=== PATIENT | female | born 1940 | race Two or more races ===

== ENCOUNTER 2024-11-22 08:43 | Day surgery (SDC) | payer MEDICARE, SELFPAY ==
[2024-11-22] VITALS (10 sets, daily range): BP systolic 108–167; BP diastolic 53–82; BMI 22.3
[2024-11-22 09:46] LABS: Hematocrit 40.5 % (37.0-47.0); Hemoglobin 12.9 g/dL (12.0-16.0); Mean Corp Hgb Conc. 31.9 g/dL (33.0-37.0); Mean Corpuscular Volume 79.7 fL (81.0-99.0); Platelet Count 339 10^3/uL (130-400); Red Cell Dist. Width 18.6 % (11.5-14.5)
[2024-11-22] MEDS: NSS 145 ML IV (09:47)
[2024-11-22] MEDS: LOW STRENGTH ASPIRIN 81 MG PO (09:50)
[2024-11-22 10:01] LABS: Blood Urea Nitrogen 18 mg/dl (7-17); Calcium 10.1 mg/dl (8.4-10.2); Carbon Dioxide 26 mmol/L (22-30); Chloride 107 mmol/L (98-107); Estimated Creatinine Clearance 40 ml/min; Glucose 180 mg/dl (70-99); Potassium 3.9 mmol/L (3.5-5.1); Sodium 141 mmol/L (135-145); eGFR > 60.00
[2024-11-22 13:30] LABS: ACT-LR - POC 178 Seconds (116-155)
[2024-11-22 13:40] LABS: ACT-LR - POC 250 Seconds (116-155)
[2024-11-22 13:57] LABS: ACT-LR - POC 252 Seconds (116-155)
[2024-11-22 14:08] LABS: ACT-LR - POC 294 Seconds (116-155)
[2024-11-22 14:23] LABS: ACT-LR - POC 274 Seconds (116-155)
[2024-11-22] MEDS: NSS 1000 IV (15:00)
--- NOTE | 2024-11-22 15:04 | ITS.CL.CATH ---
Garment Manufacturer - Catheterization
Cardiac Catheterization
Procedure Report:
LEFT HEART CATHETERIZATION AND CORONARY INTERVENTION
Date of Procedure: November 22, 2024
Referring: Mitchell Angulo MD
PROCEDURES:
1. Left heart catheterization, coronary angiogram.
2. Moderate sedation.
3. Successful percutaneous coronary artery intervention of a IFR +70% mid LAD stenosis (iFR 0.89) with one 2.5 x 12 mm Xience [place] point drug-eluting stent, postdilated with a 2.5 x 8 mm NC balloon at high pressures with an excellent angiographic
result.
4. Intravascular ultrasound (IVUS)
5. Functional physiologic testing with IFR of mid LAD
INDICATION: Ongoing dyspnea on exertion with an abnormal stress test on 3 antianginal medications
ACCESS: Right radial artery, 6Fr. sheath, under US guidance.
HEMODYNAMICS : (mmHg)
AO (s/d) : 116/50
LVEDP : 13
No significant gradient across the aortic valve to suggest aortic stenosis.
CORONARY FINDINGS
Dominance: Left
Left Main Trunk (LMT): The left main appears to be cloacal in origin giving rise to the LAD and the left circumflex with minimal atherosclerotic plaque.
Left Anterior Descending Artery (LAD): Mildly calcified, medium caliber vessel that gives off 1 major diagonal branch as it courses along the anterior inter-ventricular groove before wrapping around the cardiac apex. The mid LAD has a 70% stenosis
just distal to the takeoff of the major diagonal branch which was IFR positive at 0.89 with intervention as noted below. Proximal LAD has a 20% stenosis. Ostial D1 has a eccentric 60 to 70% stenosis.
Left Circumflex Artery (LCx): Large caliber vessel that gives off 2 major obtuse marginal (OM) branches, 1 posterolateral branch and the left posterior descending artery as it courses along the atrio-ventricular (AV) groove. There is mild diffuse
atherosclerotic plaque.
Right Coronary Artery (RCA): Large caliber dominant vessel that gives rise to the posterior descending artery (RPDA) and postero-lateral ventricular (RPLV) branches distally. The RCA and its branches are free of angiographic disease.
HEMODYNAMIC ASSESSMENT OF THE MID LAD WITH A [employer] OMNI WIRE: The origin of the left coronary artery was cannulated with a 6 Fr JL 3.5 guide catheter. We initially attempted a 6 [place] EBU 3.5 guide catheter however given the cloacal nature of
the origin of the left main we could only selectively engage into the left circumflex despite manipulation multiple times. Intravenous heparin was administered and the ACT was followed during the procedure. Of note, soon after selective engagement
with the guide catheter, patient had sudden onset of initial sinus bradycardia followed by 2-1 AV block associated with hypotension requiring support transiently with Conrado-Synephrine for hypotension as well as atropine with eventual resolution and
then she remained in sinus rhythm for the remainder of the case without any recurrence. At this time she did not complain of any lightheadedness/dizziness, presyncope, nausea or any other symptoms. Two hundred micrograms of intracoronary
nitroglycerin was given through the guide catheter. A [employer] Omni wire was advanced to the guide catheter tip and normalized just outside the guide catheter. The Omni wire was then carefully manipulated across the stenosis in the mid LAD with the
iFR below the ischemic threshold serially measuring 0.89, 0.90, 0.90. The Omni wire was then pulled back to the guide catheter where the Pd/Pa measured 1.0 confirming no baseline drift in pressure readings.
CORONARY INTERVENTION: We decided to proceed with percutaneous intervention of the mid LAD for an IFR of 0.89. We proceeded to work over the IFR wire that was in the distal vessel. We predilated the lesion using a 2.5 x 12 mm semicompliant balloon
to full expansion. We subsequently stented the lesion with a 2.5 x 12 mm Xience landon point drug-eluting stent and postdilated with a 2.5 x 8 mm NC balloon at high pressures with an excellent angiographic result. At this point we brought in a
[place] eye IVUS catheter and we were only able to advance the IVUS catheter to the proximal edge of the stent given significant calcium. At this point the stent appeared well-expanded and well opposed. There was no evidence of proximal
stent edge dissection. Otherwise there was diffuse mild atherosclerotic plaque noted within the proximal to mid LAD on intravascular ultrasound.
SEDATION: 67 minutes of procedural sedation was utilized. IV Midazolam and IV Fentanyl were administered. An independent medical reimbursement specialist was present to assist with and help manage the patient's level of consciousness and physiologic status.
RADIATION SUMMARY: Fluoro Time (min): 19.2, Dose (mGy): 482, DAP (Gy.cm2) : 29.6
Closure Device: There were no immediate intra-procedural complications. The sheath was pulled in the computer lab assistant and a vascular-band applied to the right wrist for radial artery hemostasis using the patent hemostasis technique.
CONCLUSIONS
1. Successful percutaneous coronary artery intervention of a IFR +70% mid LAD stenosis (iFR 0.89) with one 2.5 x 12 mm Xience land[place] point drug-eluting stent, postdilated with a 2.5 x 8 mm NC balloon at high pressures with an excellent angiographic
result.
2. LVEDP of 13 mmHg.
3. Of note, soon after selective engagement with the guide catheter prior to iFR, patient had sudden onset of initial sinus bradycardia followed by 2-1 AV block associated with hypotension requiring support transiently with Conrado-Synephrine for
hypotension as well as atropine with eventual resolution and then she remained in sinus rhythm for the remainder of the case without any recurrence. At this time she did not complain of any lightheadedness/dizziness, presyncope, nausea or any other
symptoms.
RECOMMENDATIONS
1. Wean radial band per protocol. Monitor right hand perfusion and for bleeding from the radial site following removal of the vascular-band following trans-radial access.
2. Continue aggressive medical therapy and risk factor modification for secondary CAD prevention.
3. Continue ASA 81 mg daily for life.
4. Continue plavix for at least 12 months of uninterrupted dual anti-platelet therapy given drug-eluting stent (MADALYN) implantation to mitigate the risk of stent thrombosis. This is not to be stopped for any reason without the guidance of a
restaurant service manager.
5. Hydrate with normal saline to mitigate the risk of contrast-induced acute kidney injury.
6. Monitor closely on telemetry overnight with consideration for outpatient environmental monitoring technician.
7. Referral for outpatient cardiac rehab.
8. Follow-up with Dr. Mitchell Angulo.
Copy to: Dr. Mitchell Angulo (restaurant service manager) and Dr. Shaggy Judge (PCP)
Laura Bunch MD, FACC, [facility]
--- NOTE | 2024-11-22 15:26 | CM ---
Reviewed chart. Met with Mrs. Lovett and her family to review discharge plans. Family provided the information. Prior to admission she resides with her son and [id number] in a two story home with three steps to enter. She has a full flight
of steps to get to bedroom/full bathroom. She has a powder room on the first floor. Prior to admission she ambulates with a walker or a handheld of her son or [id number]. She has someone at home with her. She has a prescription plan. The
discharge plan is to return home with her son and [id number] when medically stable.
[2024-11-22] MEDS: TYLENOL 650 MG PO (15:54)
[2024-11-22] MEDS: PROTONIX 40 MG PO (16:31)
[2024-11-22] MEDS: CRESTOR 40 MG PO (17:07)
[2024-11-22] MEDS: HEPARIN 5000 UNITS SC (19:57)
[2024-11-23] VITALS (8 sets, daily range): BP systolic 115–172; BP diastolic 53–87; BMI 22.2
--- NOTE | 2024-11-23 02:59 | DOWNTIME ---
There was a [employer] Client Electric Wheelchair Repairer Downtime on 11/23/2024 from 0100 to 11/23/2024 at 0220. Downtime documentation of patient's care, including medication administrations, has been reconciled in the electronic record per guidelines. Refer to the
patient's paper chart under the miscellaneous tab to see printed paper medication records and downtime forms.
[2024-11-23 05:05] LABS: Hematocrit 37.9 % (37.0-47.0); Hemoglobin 12.1 g/dL (12.0-16.0); Mean Corp Hgb Conc. 31.9 g/dL (33.0-37.0); Mean Corpuscular Volume 80.0 fL (81.0-99.0); Nucleated Red Blood Cells % 0 %; Platelet Count 297 10^3/uL (130-400); Red Cell Dist. Width 18.5 % (11.5-14.5)
[2024-11-23 05:29] LABS: Blood Urea Nitrogen 15 mg/dl (7-17); Calcium 9.7 mg/dl (8.4-10.2); Carbon Dioxide 26 mmol/L (22-30); Chloride 107 mmol/L (98-107); Estimated Creatinine Clearance 40 ml/min; Glucose 146 mg/dl (70-99); HDL Cholesterol 42 mg/dl; LDL Cholesterol, Calculated 31 mg/dl; Potassium 3.6 mmol/L (3.5-5.1); Sodium 140 mmol/L (135-145); Very Low Density Lipoprotein 22 mg/dl (0-30); eGFR > 60.00
[2024-11-23] MEDS: PROTONIX 40 MG PO (08:47)
[2024-11-23] MEDS: NORVASC 5 MG PO (08:47)
[2024-11-23] MEDS: PLAVIX 75 MG PO (08:47)
[2024-11-23] MEDS: LOW STRENGTH ASPIRIN 81 MG PO (08:48)
[2024-11-23] MEDS: TENORMIN 100 MG PO (08:48)
[2024-11-23] MEDS: COZAAR 50 MG PO (08:48)
[2024-11-23] MEDS: FEOSOL 325 MG PO (08:51)
[2024-11-23] MEDS: HEPARIN 5000 UNITS SC ×2 (08:52→21:48)
[2024-11-23] MEDS: VITAMIN D3 (cholecalciferol) 125 MCG PO (08:52)
[2024-11-23] MEDS: IMDUR (EXTENDED RELEASE) 30 MG PO (09:18)
--- NOTE | 2024-11-23 09:59 | W.PN.CARDCBS ---
Addendum entered and electronically signed by Haresh Judge MD 11/23/24 14:29:
I saw and examined the patient.
The Loom Doffer's note was reviewed and I agree with the note.
Comment: Briefly, 84-year-old womareferred for coronary angiography 11/22/2024 n and had successful PCI of the mid LAD with drug-eluting stent
Overall seems to be doing well from a cardiovascular standpoint today. Resting comfortably out of bed to chair. No significant chest discomfort or dyspnea.
She does have significant bruising of the right forearm related to radial access site
Vascular ultrasound earlier today showed pseudoaneurysm and hematoma
Appreciate interventional cardiology input, TR band was placed earlier today
Continue aspirin/Plavix, high intensity statin
Beta-jimena, calcium channel jimena and long-acting nitrate as antianginals
Rest per Negrita Becerra
Original Note:
Today's Communication / Plan
-
post PCI, rad site tender check u/s
DAPT ASA/Plavix
Impression / Plan
-
PCP: Dr. Layo Judge
CDY: Mitchell Angulo MD
Impression:
CAD cath 2016 with IFR neg LAD
post PCI IFR + LAD x 1 MADALYN 2.5 x 8mm Xience skypoint 11/22/24
HTN
HLD
DM2
GUILHERME
Family hx CAD
Plan:
post PCI LAD
denies cp, sob
severe tenderness, pain in right radial site, significant ecchymosis
Check u/s rad site to r/o PSA, will have IC eval site
DAPT ASA/Plavix
Will increase Rosuvastatin 40mg daily
Hold Synjardy 48 hrs post procedure
Stop omeprazole while on plavix, switch to protonix
continue antianginals amlodipine and isosorbide for now
Cardiac rehab c/s
f/u Dr. Angulo in 2-4 weeks
pending radial u/s poss d/c home later today
PROCEDURES:
1. Left heart catheterization, coronary angiogram.
2. Moderate sedation.
3. Successful percutaneous coronary artery intervention of a IFR +70% mid LAD stenosis (iFR 0.89) with one 2.5 x 12 mm Xience landon point drug-eluting stent, postdilated with a 2.5 x 8 mm NC balloon at high pressures with an excellent angiographic
result.
4. Intravascular ultrasound (IVUS)
5. Functional physiologic testing with IFR of mid LAD
INDICATION: Ongoing dyspnea on exertion with an abnormal stress test on 3 antianginal medications
Progress Note - [employer]
Subjective
Date of Service: November 23, 2024
denies cp, sob, severe radial site pain
Objective
Labs:
11/23/24 04:24
11/23/24 04:24
Labs
Hgb 12.1 g/dL (12.0-16.0) 11/23/24 04:24
Hct 37.9 % (37.0-47.0) 11/23/24 04:24
Plt Count 297 10^3/uL (130-400) 11/23/24 04:24
Sodium 140 mmol/L (135-145) 11/23/24 04:24
Potassium 3.6 mmol/L (3.5-5.1) 11/23/24 04:24
BUN 15 mg/dl (7-17) 11/23/24 04:24
Creatinine 0.7 mg/dL (0.6-1.0) 11/23/24 04:24
Glucose 146 mg/dl (70-99) H 11/23/24 04:24
Vital Signs and I&O:
Vital Signs
Temp Pulse Resp BP Pulse Ox
98.0 F 64 16 129/60 97
11/23/24 07:45 11/23/24 08:15 11/23/24 07:45 11/23/24 07:44 11/23/24 07:44
Vital Signs
Temp Pulse Resp BP Pulse Ox
98.0 F 64 16 129/60 97
11/23/24 07:45 11/23/24 08:15 11/23/24 07:45 11/23/24 07:44 11/23/24 07:44
Intake & Output
11/21/24 11/22/24 11/23/24 11/24/24
06:59 06:59 06:59 06:59
Intake Total 295 / 295
Output Total 200 / 200
Balance 95 / 95
Physical Exam
Physical Exam
NAD, AOX3
S1, S2, RRR
CTAB, non labored, no wheeze
SNTND bsx4
R rad site pulsatile rad site, severe tenderness, moderate ecchymosis
[2024-11-23 10:16] LABS: Glycohemoglobin (HgbA1c) 8.5 % (4.0-5.6)
--- NOTE | 2024-11-23 11:15 | CM ---
Reviewed chart. Met with Mrs Lovett and her son to review discharge plans. He states she is feeling well and maybe able to go home soon. Prior to admission she resides with her son and daughter-in -law in a two story home with three steps to enter.
She has a full flight of steps to get to bedroom/full bathroom. She has a powder room on the first floor. Prior to admission she ambulates with a walker or hand holding on to her son or [id number]. Someone is always home with her. She has a
prescription plan and uses [facility]. The discharge plan is to return home with her family when medically stable.
--- NOTE | 2024-11-23 11:53 | W.PN.UPDATE ---
Update Note
Progress Note Update
Attending addendum: Pulsatile radial artery. No bruit noted but quite tender. 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 I placed a TR band at 10 ml air in balloon. Pulse ox 96% after TR band
inflated. Will repeat ultrasound this after noon.
--- NOTE | 2024-11-23 17:23 | PTCARENOTE ---
Pt received this am with no c/o of chest pain or sob. Right radial cath site slightly firm/ecchymotic. Pt sent for an U/S, then Dr. Baez applied a TR band with 10ml of air. Band removed by Basilia Becerra CNP prior to repeat U/S.
[2024-11-23] MEDS: CRESTOR 40 MG PO (17:44)
[2024-11-23] MEDS: TYLENOL 650 MG PO (21:48)
--- NOTE | 2024-11-23 22:52 | PTCARENOTE ---
assumed care of patient at the change of shift. grandson at the bedside and staying overnight. assist with translating. patient resting in the chair. ambulated in the hallway without an issue. patient states tender above the Right wrist cath site.
site is ecchymotic. mild firmness noted-no change from previous shift. + pulse. patient states no pain unless palpated. Tylenol given per request, see marcos. SR on tele 60s. denies any cp/sob. answered all questions. educated patient and grandson to
call RN with any changes overnight. makes needs known. call mitchell within reach.
[2024-11-24 04:22] VITALS: BP 173/85
[2024-11-24 04:23] VITALS: BP 181/76
[2024-11-24] MEDS: IMDUR (EXTENDED RELEASE) 30 MG PO (04:40)
[2024-11-24] MEDS: COZAAR 50 MG PO (04:40)
[2024-11-24 04:43] LABS: Hematocrit 39.3 % (37.0-47.0); Hemoglobin 12.8 g/dL (12.0-16.0); Mean Corp Hgb Conc. 32.6 g/dL (33.0-37.0); Mean Corpuscular Volume 79.9 fL (81.0-99.0); Platelet Count 305 10^3/uL (130-400); Red Cell Dist. Width 18.3 % (11.5-14.5)
--- NOTE | 2024-11-24 04:43 | PTCARENOTE ---
Addendum entered by Mathew Jones RN 11/24/24 06:01:
repeat blood pressure- 144/76.
Original Note:
elevated blood pressure this morning. 173/85. 181/76. HR SR 60s. discussed plan of care with Dewayne LOERA PA. okay to give morning dose of Losartan and Imdur, see mar. patient denies any complaints at this time. denies any cp. no changes noted to
the right wrist site. tender.
[2024-11-24 05:07] LABS: Blood Urea Nitrogen 15 mg/dl (7-17); Calcium 9.9 mg/dl (8.4-10.2); Carbon Dioxide 25 mmol/L (22-30); Chloride 107 mmol/L (98-107); Estimated Creatinine Clearance 40 ml/min; Glucose 194 mg/dl (70-99); Potassium 3.6 mmol/L (3.5-5.1); Sodium 141 mmol/L (135-145); eGFR > 60.00
[2024-11-24 06:01] VITALS: BP 144/76
[2024-11-24 07:58] VITALS: BP 131/61
[2024-11-24] MEDS: NORVASC 5 MG PO (08:36)
[2024-11-24] MEDS: PROTONIX 40 MG PO (08:36)
[2024-11-24] MEDS: FEOSOL 325 MG PO (08:37)
[2024-11-24] MEDS: PLAVIX 75 MG PO (08:37)
[2024-11-24] MEDS: LOW STRENGTH ASPIRIN 81 MG PO (08:37)
[2024-11-24] MEDS: VITAMIN D3 (cholecalciferol) 125 MCG PO (08:37)
[2024-11-24] MEDS: TENORMIN 100 MG PO (08:38)
--- NOTE | 2024-11-24 09:56 | W.PN.CARDCBS ---
Addendum entered and electronically signed by Laura Bunch MD 11/24/24 15:23:
I saw and examined the patient.
The Public Accountant's note was reviewed and I agree with the note.
Comment: Overall patient is doing well and does not offer any significant complaints. No issues at the right radial access site this morning. She has been out ambulating the halls without any shortness of breath or any symptoms.
Vital signs and lab work reviewed. On exam patient is well-appearing, no acute distress, awake alert and oriented x 3, regular rate, normal S1 and S2, no murmurs, rubs or gallops, lungs are clear to auscultation bilaterally, abdomen is soft,
nontender, nondistended with active bowel sounds, warm extremities without significant edema
Recommendations:
1. Repeat ultrasound this morning which shows that the small pseudoaneurysm is completely thrombosed. No further indications for interventions by vascular surgery at this point.
2. Continue dual antiplatelet therapy with daily baby aspirin and Plavix 75 mg along with high intensity statin.
3. Continuing home antihypertensive medications with no other changes. No heart block or sinus bradycardia noted on telemetry since admission send no changes were made to the beta-jimena.
4. She will follow-up with her outpatient PCP as well as tactical air defense controller.
5. Outpatient cardiac rehab
Stable for discharge from a cardiac standpoint.
Laura Bunch MD, [facility], [facility]
Original Note:
Today's Communication / Plan
-
f/u u/s this am, if PSA flow remains will c/s vascular surgery
if stable d/c home
Impression / Plan
-
PCP: Dr. Layo Judge
CDY: Mitchell Angulo MD
Impression:
CAD cath 2016 with IFR neg LAD
post PCI IFR + LAD x 1 MADALYN 2.5 x 8mm Xience skypoint 11/22/24
Radial PSA
HTN
HLD
DM2
GUILHERME
Family hx CAD
Plan:
post PCI LAD
denies cp, sob
radial site with tenderness post cath yesterday u/s with small PSA, TR band placed for 4 hours and repeat u/s still with minimal flow w/in neck
conservative management after reviewing case with Dr. Chinchilla (vascular surgery). Repeat u/s this am pending if flow remains will c/s vascular surgery
pain is improved but site remains firm, good pulse
hbg stable
DAPT ASA/Plavix
Will increase Rosuvastatin 40mg daily
Hold Synjardy 48 hrs post procedure
Stop omeprazole while on plavix, switch to protonix
continue antianginals amlodipine and isosorbide for now
Cardiac rehab c/s
f/u Dr. Angulo in 2-4 weeks
pending radial u/s poss d/c home later today
PROCEDURES:
1. Left heart catheterization, coronary angiogram.
2. Moderate sedation.
3. Successful percutaneous coronary artery intervention of a IFR +70% mid LAD stenosis (iFR 0.89) with one 2.5 x 12 mm Xience landon point drug-eluting stent, postdilated with a 2.5 x 8 mm NC balloon at high pressures with an excellent angiographic
result.
4. Intravascular ultrasound (IVUS)
5. Functional physiologic testing with IFR of mid LAD
INDICATION: Ongoing dyspnea on exertion with an abnormal stress test on 3 antianginal medications
Progress Note - Senior Financial Analyst
Subjective
Date of Service: November 24, 2024
denies cp, sob, still mild tenderness right wrist but improved
Objective
Labs:
11/24/24 04:32
11/24/24 04:32
Labs
Hgb 12.8 g/dL (12.0-16.0) 11/24/24 04:32
Hct 39.3 % (37.0-47.0) 11/24/24 04:32
Plt Count 305 10^3/uL (130-400) 11/24/24 04:32
Sodium 141 mmol/L (135-145) 11/24/24 04:32
Potassium 3.6 mmol/L (3.5-5.1) 11/24/24 04:32
BUN 15 mg/dl (7-17) 11/24/24 04:32
Creatinine 0.7 mg/dL (0.6-1.0) 11/24/24 04:32
Glucose 194 mg/dl (70-99) H 11/24/24 04:32
Vital Signs and I&O:
Vital Signs
Temp Pulse Resp BP Pulse Ox
98.1 F 66 20 131/61 99
11/24/24 07:58 11/24/24 08:36 11/24/24 07:58 11/24/24 08:36 11/24/24 07:58
Vital Signs
Temp Pulse Resp BP Pulse Ox
98.1 F 66 20 131/61 99
11/24/24 07:58 11/24/24 08:36 11/24/24 07:58 11/24/24 08:36 11/24/24 07:58
Intake & Output
11/22/24 11/23/24 11/24/24 11/25/24
06:59 06:59 06:59 06:59
Intake Total 295 / 295
Output Total 200 / 200
Balance 95 / 95
Physical Exam
Physical Exam
NAD, AOX3
S1, s2, RRR
CTAB, non labored, no wheeze
SNTND bsx4
R rad site with ecchymosis, firm at radial site, good pulse no bruit
--- NOTE | 2024-11-24 11:06 | PTCARENOTE ---
Discussed all nursing measures prior to implementation. Pt's granddaughter is interpreting to pt.
--- NOTE | 2024-11-24 11:21 | CM ---
Reviewed chart. Met with Mrs. Lovett and her family to review discharge plans. Family states she is feeling well. She states she has been ambulating a little. She maybe able to go home soon. Prior to admission she resides with her son and
qojlgvui-qk-wkw in a two story home with three steps to enter. She has a full flight of steps to get to bedroom/full bathroom. She has a powder room on the first floor. Prior to admission she ambulates with a walker or hand holding on to a family
member. She has a prescription plan and uses [facility]. The discharge plan is to return homewith her family when medically stable.
[2024-11-24] MEDS: HEPARIN 5000 UNITS SC (11:28)
[2024-11-24 11:35] VITALS: BP 153/79
--- NOTE | 2024-11-24 14:09 | W.DS.TRANS ---
DC Summary - Family Life Educator
-
Discharge Instructions:
Discharge Diagnosis/Procedures Angioplasty with stent to LAD, radial
pseudoaneurysm
Diet Low Cholesterol
Driving Restrictions No driving for 24 hours
Other Services Cardiac Rehab
Instructions:
Stand-Alone Forms: DC Instructions- Cath/EP Lab
Changes to Home Medications: Yes
Discharge Medications:
DC Medications w/original date entered in [employer]
aspirin 81 mg chewable tablet ([place] Aspirin) 81 mg PO DAILY Blood Clot Prevention/Tx 03/26/16
atenolol 100 mg-chlorthalidone 25 mg tablet 1 ea PO DAILY Blood Pressure 03/26/16
cholecalciferol (vitamin D3) 250 mcg (10,000 unit) tablet 5,000 unit PO DAILY Supplement 03/26/16
losartan 50 mg tablet 50 mg PO DAILY Blood Pressure 03/26/16
amlodipine 5 mg tablet 5 mg PO DAILY Blood Pressure 11/22/24
empagliflozin 12.5 mg-metformin ER 1,000 mg tablet,extended rel 24 hr (Synjardy XR) 1 tab PO BID Diabetes 11/22/24
ferrous sulfate 325 mg (65 mg iron) tablet (FeroSul) 325 mg PO DAILY Supplement 11/22/24
isosorbide mononitrate 30 mg tablet,extended release 24 hr 30 mg PO DAILY Angina 11/22/24
clopidogrel 75 mg tablet 75 mg PO DAILY #90 tabs 11/23/24
pantoprazole 40 mg tablet,delayed release 40 mg PO DAILY #30 tabs 11/23/24
rosuvastatin 40 mg tablet 40 mg PO QPM #30 tabs 11/23/24
Home Medication Changes
increased rosuvastatin, stop omeprazole, new protonix, new plavix
Pending Results: No
--- NOTE | 2024-11-24 14:15 | PTCARENOTE ---
[facility]/ [facility]. Pt d/c'd via wheelchair w/ volunteer transport.
== END 2024-11-24 14:17 | disposition home or self-care (01) ==
LOC: CATH 08:43
PROVIDERS: Nurse Practitioner Adult Health; ATTENDING PHYSICIAN Internal Medicine Interventional Cardiology; FAMILY PHYSICIAN Internal Medicine
DX: I25.10 Atherosclerotic heart disease of native coronary artery without angina pectoris (principal); I10 Essential (primary) hypertension; E78.5 Hyperlipidemia, unspecified; Z79.899 Other long term (current) drug therapy; E11.9 Type 2 diabetes mellitus without complications; D50.9 Iron deficiency anemia, unspecified; Z82.49 Family history of ischemic heart disease and other diseases of the circulatory system; I72.1 Aneurysm of artery of upper extremity; Z79.82 Long term (current) use of aspirin; Z79.02 Long term (current) use of antithrombotics/antiplatelets
CPT/HCPCS: 92978; 99152; 99153; 93799; 80048; 80061; 83036; 85025; 85027; 85347; 93005; 93458; 93926; C1725; C1753; C1769; C1874; C1894; C9600; G0378; Q9967